=== PATIENT | female | born 1945 | race Two or more races ===

== ENCOUNTER 2022-05-29 11:45 | Inpatient (IN) | payer OTHER ==
[~2022-05-29] VITALS: Ht 154.9 cm; Wt 58.5 kg
[2022-05-29] MEDS ORDERED: SYNTHROID100 MCG PO (15:03)
[2022-05-29] MEDS ORDERED: GLIPIZIDE XL5 MG PO (15:03)
[2022-05-29] MEDS ORDERED: GLUMETZA1000 MG PO (15:04)
[2022-05-29] MEDS ORDERED: ATORVAST PO (15:05)
[2022-05-29] MEDS ORDERED: LISINOPRIL10 MG PO (15:05)
[2022-05-29] MEDS ORDERED: GABAPENTIN100 MG PO (15:06)
[2022-05-29] MEDS ORDERED: RIVASTIGMINE1 EAC2 TD (15:07)
[2022-05-29] MEDS ORDERED: TRULICITY0.75 MG/0. (15:07)
[2022-05-29] MEDS ORDERED: VITAMIN D31 ML (15:08)
[2022-05-29] MEDS ORDERED: NAMENDA XR21 MG PO (15:17)
[2022-06-01] MEDS ORDERED: ATORVASTATIN CA40 MG (09:35)
[2022-06-13] MEDS ORDERED: ULTRACET PO (08:05)
[2022-06-13] MEDS ORDERED: PROTONIX40 MG PO (08:05)
== END 2022-06-13 15:31 | disposition home or self-care (01) | DRG 329 ==
LOC: O/R 05-31 08:35 → SURG 05-31 08:35 → SURH 05-31 11:45 → SURG 05-31 17:17
PROVIDERS: Obstetrics & Gynecology Gynecologic Oncology; ADMIT Surgery; ATTEND Surgery
PROC: 0UT10ZZ Resection of Left Ovary, Open Approach (ICD-10-PCS; 2022-05-31)
PROC: 0DBP0ZZ Excision of Rectum, Open Approach (ICD-10-PCS; 2022-05-31)
PROC: 07BC0ZZ Excision of Pelvis Lymphatic, Open Approach (ICD-10-PCS; 2022-05-31)
PROC: 0D1M0Z4 Bypass Descending Colon to Cutaneous, Open Approach (ICD-10-PCS; 2022-05-31)
PROC: 0DBK0ZZ Excision of Ascending Colon, Open Approach (ICD-10-PCS; 2022-05-31)
PROC: 0DTH0ZZ Resection of Cecum, Open Approach (ICD-10-PCS; 2022-05-31)
PROC: 0DJD8ZZ Inspection of Lower Intestinal Tract, Via Natural or Artificial Opening Endoscopic (ICD-10-PCS; 2022-05-31)
PROC: 30233N0 Transfusion of Autologous Red Blood Cells into Peripheral Vein, Percutaneous Approach (ICD-10-PCS; 2022-05-31)
PROC: 0DTN0ZZ Resection of Sigmoid Colon, Open Approach (ICD-10-PCS; principal; 2022-05-31 12:45)
PROC: 0UT60ZZ Resection of Left Fallopian Tube, Open Approach (ICD-10-PCS; 2022-05-31 12:45)
PROC: BW2110Z Computerized Tomography (CT Scan) of Abdomen and Pelvis using Low Osmolar Contrast, Unenhanced and Enhanced (ICD-10-PCS; 2022-06-07)
PROC: 02HV33Z Insertion of Infusion Device into Superior Vena Cava, Percutaneous Approach (ICD-10-PCS; 2022-06-08)
PROC: B54MZZZ Ultrasonography of Right Upper Extremity Veins (ICD-10-PCS; 2022-06-09)
DX: K57.20 Diverticulitis of large intestine with perforation and abscess without bleeding (principal); N73.3 Female acute pelvic peritonitis; K62.5 Hemorrhage of anus and rectum; N70.03 Acute salpingitis and oophoritis; Z16.11 Resistance to penicillins; D62 Acute posthemorrhagic anemia; Z53.31 Laparoscopic surgical procedure converted to open procedure; K64.1 Second degree hemorrhoids; K62.89 Other specified diseases of anus and rectum; N83.202 Unspecified ovarian cyst, left side; N83.8 Other noninflammatory disorders of ovary, fallopian tube and broad ligament; N73.8 Other specified female pelvic inflammatory diseases; N73.6 Female pelvic peritoneal adhesions (postinfective); I10 Essential (primary) hypertension; E11.65 Type 2 diabetes mellitus with hyperglycemia; B95.2 Enterococcus as the cause of diseases classified elsewhere; B96.89 Other specified bacterial agents as the cause of diseases classified elsewhere; R53.81 Other malaise

== ENCOUNTER 2022-11-26 08:45 | Inpatient (IN) | payer OTHER ==
[~2022-11-26] VITALS: Ht 152.4 cm; Wt 57.6 kg
[~2022-11-26 08:45] MED LIST: ATORVAST PO; ATORVASTATIN CA40 MG; GABAPENTIN100 MG PO; GLIPIZIDE XL5 MG PO; GLUMETZA1000 MG PO; LISINOPRIL10 MG PO; NAMENDA XR21 MG PO; PROTONIX40 MG PO; RIVASTIGMINE1 EAC2 TD; SYNTHROID100 MCG PO; TRULICITY0.75 MG/0.; ULTRACET PO; VITAMIN D31 ML
[2022-11-26] MEDS ORDERED: SYNTHROID112 MCG PO (12:03)
[2022-11-26] MEDS ORDERED: FENOF PO (12:09)
[2022-11-26] MEDS ORDERED: NASAL MIST126 ML (12:09)
[2022-12-02] MEDS ORDERED: ACETAMINOPHEN500 M2 PO (13:27)
[2022-12-02] MEDS ORDERED: NEURONTIN300 MG PO (13:27)
== END 2022-12-02 13:45 | disposition home or self-care (01) | DRG 330 ==
LOC: SURG 11-29 08:45 → O/R 11-29 09:38 → SURG 11-29 10:15 → SURH 11-29 18:19
PROVIDERS: ADMIT Surgery; ATTEND Surgery
PROC: 0DBP4ZZ Excision of Rectum, Percutaneous Endoscopic Approach (ICD-10-PCS; 2022-11-29)
PROC: 0DTN4ZZ Resection of Sigmoid Colon, Percutaneous Endoscopic Approach (ICD-10-PCS; 2022-11-29)
PROC: 0DQM4ZZ Repair Descending Colon, Percutaneous Endoscopic Approach (ICD-10-PCS; principal; 2022-11-29 10:15)
DX: K62.5 Hemorrhage of anus and rectum (principal); K57.20 Diverticulitis of large intestine with perforation and abscess without bleeding; K64.1 Second degree hemorrhoids; K62.89 Other specified diseases of anus and rectum; N73.6 Female pelvic peritoneal adhesions (postinfective)

== ENCOUNTER 2025-01-03 15:17 | Emergency (ER) | payer OTHER ==
[~2025-01-03] VITALS: Ht 154.9 cm; Wt 65.8 kg
[~2025-01-03 15:17] MED LIST changes: +ACETAMINOPHEN500 M2 PO; +FENOF PO; +NASAL MIST126 ML; +NEURONTIN300 MG PO; +SYNTHROID112 MCG PO
[2025-01-03] MEDS ORDERED: CITALOPRAM HBR10 MG PO (15:44)
[2025-01-03] MEDS ORDERED: LANTUS SOL100 UNIT/1 (15:44)
[2025-01-03 17:05] LABS: BASO % 0.8 % (0.1-1.2); EOS # 0.15 (0.04-0.54); EOS % 1.6 % (0.7-7.0); LYMPH # 2.25 (1.18-3.74); LYMPH % 24.2 % (19.3-53.1); MEAN PLATELET VOLUME 9.70 fl (9.4-12.4); MONO # 0.76 (0.24-0.82); MONO % 8.2 % (4.7-12.5); NEUT # 6.01 (1.56-6.13); NEUT % 64.6 % (34.0-71.1); RED CELL DISTRIBUTION WIDTH 12.4 % (11.6-14.4)
[2025-01-03 17:47] LABS: ALT/SGPT 30.0 U/L (12-78); AST/SGOT 27.0 U/L (15-37); BILIRUBIN TOTAL 0.23 mg/dL (0.3-1.2); BUN CREA RATIO 24.0 (7.0-25.0); CREATININE SERUM 1.05 mg/dL (0.55-1.02); GFR 50.56; GLOBULINA 3.6 G/DL (2.4-3.5); GLUCOSE FASTING 288.0 mg/dL (65-100); OSMOLALITY SERUM 294.0 MOSM/KG (275-295)
[2025-01-03] MEDS ORDERED: 8 HOUR650 MG PO (20:17)
== END 2025-01-03 20:31 | disposition home or self-care (01) ==
LOC: ER 15:17
PROVIDERS: Preventive Medicine Public Health & General Preventive Medicine
DX: R10.32 Left lower quadrant pain (principal); R10.9 Unspecified abdominal pain; I10 Essential (primary) hypertension; E11.9 Type 2 diabetes mellitus without complications; Z79.84 Long term (current) use of oral hypoglycemic drugs
CPT/HCPCS: 36415; 74177; 99284; Q9965